=== PATIENT | male | born 2000 | race Caucasian/White ===

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

== ENCOUNTER → 2020-03-20 | Outpatient (CLI) | payer SELFPAY ==
--- NOTE | 2020-05-03 07:59 | REP ---
RIGHT ANKLE SERIES:4-VIEWS HISTORY: Twisted ankle. Heel bruising. FINDINGS: 4-views of the right ankle are performed and demonstrate no evidence of acute fracture, dislocation or intrinsic bone disease. The ankle mortise is anatomic. IMPRESSION: No acute fracture or dislocation. MTDD
== END ==
LOC: M RAD 15:35
PROVIDERS: ATTEND Physician Assistant
DX: M25.571 Pain in right ankle and joints of right foot (principal)